=== PATIENT | female | born 2000 | race Asian ===

== ENCOUNTER 2025-05-13 06:45 | Outpatient (REF) | payer OTHER, SELFPAY ==
--- NOTE | ~2025-05-13 | US_ITS ---
EXAMINATION: US ABDOMEN COMPLETE CLINICAL INFORMATION: Epigastric pain.. COMPARISON: None available. TECHNIQUE: Real-time ultrasound of the abdomen using grayscale technique. FINDINGS: PANCREAS: No peripancreatic fluid collection. ABDOMINAL AORTA: The proximal, mid, and distal segments are normal in caliber. INFERIOR VENA CAVA: Visualized portions are normal. LIVER: Liver measures 14 cm. Coarse echotexture. No nodular contour. There is a 1.4 cm hyperechoic lesion, right hepatic lobe. No intrahepatic ductal dilatation. Main portal vein is patent with normal hepatopedal flow direction. GALLBLADDER: Fluid-filled and contracted. No pericholecystic fluid collection or gallbladder wall thickening. COMMON BILE DUCT: 1 mm. RIGHT KIDNEY: 10 cm. Normal echotexture. Renal cortical thickness is normal. No hydronephrosis. No solid or cystic lesion.. LEFT KIDNEY: 11 cm. Normal echotexture. Renal cortical thickness is normal. No hydronephrosis. No solid or cystic lesion.. SPLEEN: 9 cm. No solid or cystic lesion.. FREE FLUID: None. US/US abdomen complete IMPRESSION: No cholelithiasis or choledocholithiasis. 1.4 cm hyperechoic lesion, right hepatic lobe. Statistically may represent hemangioma. No hydronephrosis. No ascites. Electronically signed by: Ean Ordonez MD 05/13/2025 01:41 PM EST
--- OUTSIDE RECORDS SUMMARY | 2025-05-13 06:47 | XMS_ITS | Clinical Summary ---
Author Organization [facility] Address [address] [place] [id number] Phone Care Team Providers Care Rheologist Name Role Phone Nakia Bryan MD Primary Care Provider + Encounters Date Type Department Care Team Description 05/06/2025 Transcribe Orders [facility] Gastroenter[facility] [address] [address] Nakia Bryan MD from Last 3 Months Social History Tobacco Use Types Packs/Day Years Used Date Smoking Tobacco: Never Assessed Education Answer Date Recorded Are you interested in more education? Not on beth e 05/06/2025 Are you concerned about learning? Not on file 05/06/2025 No 05/06/2025 No 05/06/2025 Digital Access Answer Date Recorded No 05/06/2025 No 05/06/2025 Reliable internet access at home? Not on file 05/06/2025 Device with a working camera? Not on file Comments Unknown Sex and Gender Information Value Date Recorded Sex Assigned at Not on file Legal Sex Female 2:49 PM EDT Gender Identity Not on file Sexual Orientation Not on file Plan of Treatment Upcoming Encounters Date Type Department Care Team (Late st Contact Info) Description 08/18/2025 12:30 PM EST Office Visit [facility] Gastroenter[facility] [address] [address] Whitney Andrade, PROCESS IMPROVEMENT MANAGER [address] [place] [id number] [email or web address] Health Maintenance Due Date Last Done Comments Adult Td,Tdap Booster 2001 DEPRESSION SCREENING 2013 SMOKING Hx and SMOKELESS TOB ACCO SCREENING 2014 HPV VACCINES (1 - 3-dose series) 2016 CHLAMYDIA SCREENING 2017 MENINGOCOCCAL VACCINES (B) ( 1 of 2 - Standard) 2017 HEPATITIS C SCREENING 2019 HIV ONE-TIME SCREENING (18-6 5 YEARS) 2019 PAP SMEAR 2022 INFLUENZA VACCINE (#1) 2025 COVID-19 VACCINE (1 - 2024-2 6 season) 2025 HEPATITIS A VACCINES Aged Out No long er eligible based on patient's age to complete this topic HIB VACCINES Aged Out No longer eligi ble based on patient's age to complete this topic MENINGOCOCCAL VACCINES (ACWY) Aged Out No longer eligible based on patient's age to complete this topic PNEUMOCOCCAL VACCINES (0-49 years) Aged Out No longer eligible based on patient's age to complete this topic Medical Devices Not on file Insurance ([place]) [address] [place] [address] WellRightLIANNE CorasWorksJON [employer]Michael [employer]ET WellRightLIANNE CorasWorksEET WellRightNA WELLCoupoplacesEET ALISSA SINGH Care Teams Rheologist Relationship Specialty Start Date End Date Nakia Bryan MD [address] [place] [phone] PCP - General Family Medicine 05/06/25 Additional Source Comments The information contained in this document represents components of the legal health record. It is not the complete legal health record.[facility]
== END 2025-05-13 06:46 | disposition home or self-care (01) ==
LOC: HO.UMASIMG 06:45
PROVIDERS: Visit Provider Family Medicine
DX: R10.13 Epigastric pain (principal)
CPT/HCPCS: 76700

== ENCOUNTER → 2025-05-13 13:00 | Outpatient (BNV) | payer OTHER, SELFPAY | PROVIDERS: Visit Provider Radiology Diagnostic Radiology | DX: K76.89 Other specified diseases of liver (principal) | CPT/HCPCS: 76700 ==

== ENCOUNTER 2025-06-08 09:16 | Outpatient (REF) | payer OTHER, SELFPAY ==
--- NOTE | ~2025-06-08 | US_ITS ---
EXAMINATION: US PELVIS TRANSABDOMINAL AND TRANSVAGINAL HISTORY: IRREGULAR MENSTRUATION COMPARISON: There are no prior studies available for comparison. TECHNIQUE: Transabdominal ultrasound was performed. FINDINGS: LMP:Last month Uterus: The uterus is normal in size, measuring 7.3 x 3.5 x 4.7 cm. Myometrium has a normal echotexture. No focal lesions are identified. Endometrium: The endometrial stripe measures 0.38 mm in thickness. Right ovary: The right ovary measures 4.4 x 1.6 x 1.2 cm. Volume 4.3 cc. The right ovary is normal in size and echotexture. Left ovary: The left ovary measures 2.4 x 1 x 1.4 cm. Volume 1.8 cc The left ovary is normal in size and echotexture. Pelvic fluid: Small amount of free fluid.. US/US pelvic and transvaginal IMPRESSION: No ovarian or uterine abnormality demonstrated by ultrasound. Small free fluid. Electronically signed by: Dean Cisneros MD 06/09/2025 11:48 AM [facility]
--- OUTSIDE RECORDS SUMMARY | 2025-06-08 09:51 | XMS_ITS | Clinical Summary ---
Author Organization [facility] Address [address] [place] [phone] Phone Care Team Providers Care Management Development Specialist Name Role Phone Nakia Bryan MD Primary Care Provider + Encounters Date Type Department Care Team Description 05/06/2025 Transcribe Orders [facility] Gastroenterology [address] [address] Nakia Bryan MD from Last 3 Months [...] Description 08/18/2025 12:30 PM EST Office Visit [facility] [address] [place] [phone] Whitney Andrade, TRAILER SECTIONS ASSEMBLER [email or web address] Health Maintenance Due Date Last Done Comments Adult Td,Tdap Booster 2001 DEPRESSION SCREENING 2013 SMOKING Hx and SMOKELESS TOB ACCO SCREENING 2014 HPV VACCINES (1 - 3-dose series) 2016 CHLAMYDIA SCREENING 2017 MENINGOCOCCAL VACCINES (B) ( 1 of 2 - Standard) 2017 HEPATITIS C SCREENING 2019 HIV ONE-TIME SCREENING (18-6 5 YEARS) 2019 PAP SMEAR 2022 INFLUENZA VACCINE (#1) 2025 COVID-19 VACCINE ( - 2024-2 6 season) 2025 HEPATITIS A [...] topic Medical Devices Not on file Insurance ([place]) [address] [place] [address] SocialMartLIANNE Support Your AppJON Etable CIGNA DizkonFLEET Modern BoutiqueMULTICARE [facility] CIGNA WELLFLEET ALISSA JOHNSON Care Teams Management Development Specialist Relationship Specialty Start Date End Date Nakia Bryan MD [address] [place] [address] [place] [address] [email or web address] PCP - General Family Medicine 05/06/25 Additional Source Comments The information contained in this document represents components of the legal health record. It is not the complete legal health record.[facility]
== END 2025-06-08 09:17 | disposition home or self-care (01) ==
LOC: HO.UMASIMG 09:16
PROVIDERS: Visit Provider Nurse Practitioner Women's Health
DX: N92.6 Irregular menstruation, unspecified (principal)
CPT/HCPCS: 76830; 76856

== ENCOUNTER → 2025-06-08 14:25 | Outpatient (BNV) | payer OTHER, SELFPAY | PROVIDERS: Visit Provider Radiology Diagnostic Ultrasound | DX: N92.6 Irregular menstruation, unspecified (principal) | CPT/HCPCS: 76830; 76856 ==